=== PATIENT | male | born 1985 | race Caucasian/White ===

== ENCOUNTER 2020-06-14 18:58 | Emergency (ER) | payer OTHER ==
--- NOTE | 2020-06-14 20:02 | ER Document Report ---
ED Medical Screen (RME) - General Chief Complaint: High Blood Pressure Stated Complaint: DIZZY Time Seen by Provider: 06/14/20 19:53 - HPI Notes: 06/14/20 20:06 34-year-old male presents to the emergency room today with complaints of headaches, dizziness, reports moments where he is "blacking out" throughout the day, elevated blood pressure is 165/105 while taking amlodipine and losartan. Patient has been following pain management due to issues with his lumbar spine, his blood pressure was elevated when he was with pain management, they advised him to get on blood pressure medications which he did with his primary care pr ovider a year ago , patient say that he has tried several blood pressure medications without any reduction in his actual blood pressure. 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 reports his headache is 3 out of 5, not the worst headache of his life I have greeted and performed a rapid initial assessment of this patient. A comprehensive ED assessment and evaluation of the patient, analysis of test results and completion of the medical decision making process will be conducted by additional ED providers. PHYSICAL EXAMINATION: GENERAL: Well-appearing, well-nourished and in moderate distress due to lower back pain HEAD: Atraumatic, normocephalic. EYES: Pupils equal round extraocular movements intact, conjunctiva are normal. NECK: Normal range of motion CV: s1, s2 regular LUNGS: No respiratory distress The patient was evaluated during a global COVID-19 pandemic and that diagnosis was suspected/considered upon their initial presentation. Their evaluation, treatment and testing was consistent with current guidelines for patients who present with complaints or symptoms and may be related to COVID-19. 06/14/20 20:11 - Related Data Allergies/Adverse Reactions: No Known Allergies Allergy (Unverified 02/27/14 14:23) Past Medical History Pulmonary Medical History: Reports: Hx Asthma - Immunizations Hx Diphtheria, Pertussis, Tetanus Vaccination: - unknown
[2020-06-14] MEDS ORDERED: METHOCARBAMOL 500 MG TABLET PO ONE (20:03)
[2020-06-14] MEDS ORDERED: HYDROCODONE/ACETAMINOPHEN 7.5-325 MG TABLET PO ONE (20:03)
[2020-06-14 20:58] LABS: ABSOLUTE BASOPHILS # (AUTO) 0.1 10^3/uL (0.0-0.2); ABSOLUTE EOSINOPHILS # (AUTO) 0.2 10^3/uL (0.0-0.6); ABSOLUTE LYMPHOCYTES (AUTO) 1.9 10^3/uL (0.5-4.7); ABSOLUTE MONOCYTES (AUTO) 1.1 10^3/uL (0.1-1.4); ABSOLUTE NEUT (AUTO) 7.4 10^3/uL (1.7-8.2); BASOPHILS % (AUTO) 0.9 % (0-2); EOSINOPHILS % (AUTO) 2.2 % (0-6); HEMATOCRIT 44.1 % (37.9-51.0); HEMOGLOBIN 15.2 g/dL (13.5-17.0); LYMPHOCYTES % (AUTO) 17.5 % (13-45); MEAN CORPUSCULAR HEMOGLOBIN 31.1 pg (27.0-33.4); MEAN CORPUSCULAR HGB CONC 34.5 g/dL (32.0-36.0); MEAN CORPUSCULAR VOLUME 90 fl (80-97); MONOCYTES % (AUTO) 10.1 % (3-13); PLATELET COUNT 246 10^3/uL (150-450); RED BLOOD COUNT 4.89 10^6/uL (4.35-5.55); RED CELL DISTRIBUTION WIDTH 12.9 % (11.5-14.0); SEGMENTED NEUTROPHILS % (AUTO) 69.3 % (42-78); TOTAL CELLS COUNTED % (AUTO) 100 %; WHITE BLOOD COUNT 10.7 10^3/uL (4.0-10.5)
--- NOTE | 2020-06-14 20:59 | RADIOLOGY REPORT (SQ) ---
EXAM DESCRIPTION: CT HEAD WITHOUT IV CONTRAST COMPLETED DATE/TME: 06/14/2020 20:30 CLINICAL HISTORY: 34 years, Male, headache, bp 170s/90, sudden onset EXAM DESCRIPTION: CT HEAD WITHOUT CLINICAL HISTORY: headache, bp 170s/90, sudden onset COMPARISON: None Available TECHNIQUE: Contiguous axial CT images of the head were obtained. Coronal and sagittal reconstructions were created from the axial data. This exam was performed according to our departmental dose-optimization program, which includes automated exposure control, adjustment of the mA and/or kV according to patient size and/or use of iterative reconstruction technique. FINDINGS: There is moderate mucosal thickening of the paranasal sinuses. There is no evidence of acute mass, mass effect, midline shift or hemorrhage. The ventricles and extra-axial CSF spaces are unremarkable. The brain parenchyma appears normal for the patient's age. No acute abnormalities of the bones is seen. IMPRESSION: No acute intracranial abnormality.
--- NOTE | 2020-06-14 21:00 | RADIOLOGY REPORT (SQ) ---
EXAM DESCRIPTION: XR CHEST 1 VIEW COMPLETED DATE/TME: 06/14/2020 20:20 CLINICAL HISTORY: 34 years, Male, headache, bp 170s/90, sudden onset COMPARISON: Chest x-ray 02/27/2014. TECHNIQUE: PA view of the chest FINDINGS: Cardiomediastinal silhouette is not enlarged. No suspicious lung pleural bone abnormalities. IMPRESSION: Negative chest x-ray.
[2020-06-14 21:12] LABS: ALBUMIN 5.2 g/dL (3.5-5.0); ALKALINE PHOSPHATASE 49 U/L (38-126); ANION GAP 9 (5-19); ASPARTATE AMINO TRANSFERASE 40 U/L (17-59); BILIRUBIN,DIRECT 0.2 mg/dL (0.0-0.4); BILIRUBIN,TOTAL 1.2 mg/dL (0.2-1.3); BLOOD UREA NITROGEN 10 mg/dL (7-20); CALCIUM 10.3 mg/dL (8.4-10.2); CARBON DIOXIDE 28 mmol/L (22-30); CHLORIDE 97 mmol/L (98-107); GLUCOSE 102 mg/dL (75-110); POTASSIUM 4.4 mmol/L (3.6-5.0); TOTAL PROTEIN 8.5 g/dL (6.3-8.2)
--- NOTE | 2020-06-14 22:20 | ER Document Report ---
ED Dizziness/Weakness - General Chief Complaint: Near Syncope Stated Complaint: DIZZY Time Seen by Provider: 06/14/20 19:53 Primary Care Provider: CECI MCCORMICK MD [Primary Care Provider] - Follow up as needed Mode of Arrival: Ambulatory Information source: Patient Notes: 06/14/20 19:54 - ED Nursing Note by WANDA REZA [facility] Num: [id number] : 1985 Patient Age: 34 Addendum entered by WANDA REZA RN 06/14/20 19:57: pt denies chest pain/sob Original Note: pt presents to ed via pov w/ c/o of dizziness, lightheadedness, "spasms," and near syncope at home and in ED since yesterday. pt denies changes to bp medications or missed dosages. pt aox4, breathes e/u. Initialized on 06/14/20 19:54 - END OF NOTE ED Medical Screen (Renan Calhoun) - General Chief Complaint: High Blood Pressure Stated Complaint: DIZZY Time Seen by Provider: 06/14/20 19:53 - HPI Notes: 06/14/20 20:06 34-year-old male presents to the emergency room today with complaints of headaches, dizziness, reports moments where he is "blacking out" throughout the day, elevated blood pressure is 165/105 while taking amlodipine and losartan. Patient has been following pain management due to issues with his lumbar spine, his blood pressure was elevated when he was with pain management, they advised him to get on blood pressure medications which he did with his primary care provider a year ago , patient say that he has tried several blood pressure medications without any reduction in his actual blood pressure. 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 reports his headache is 3 out of 5, not the worst headache of his life I have greeted and performed a rapid initial assessment of this patient. A comprehensive ED assessment and evaluation of the patient, analysis of test results and completion of the medical decision making process will be conducted by additional ED providers. PHYSICAL EXAMINATION: GENERAL: Well-appearing, well-nourished and in moderate distress due to lower back pain HEAD: Atraumatic, normocephalic. EYES: Pupils equal round extraocular movements intact, conjunctiva are normal. NECK: Normal range of motion CV: s1, s2 regular LUNGS: No respiratory distress MY NOTES 34-year-old male arrives with chief complaint of headache dizziness and syncopal episodes throughout the day. His blood pressure is 165/105 despite taking Norvasc and losartan. Patient is a mesomorphic heavily tattooed male who snores at nighttime with a thick neck according to his . Also patient's is from [place] and is a good cook and he put on at least 80 pounds since he has been . Patient advises his blood pressures also been going up and his father at age 55 from a CABG. His father has hypertension as well. Patient reports he recently was placed on Afrin nasal spray because he had a premolar pulled and has a root remaining in the dry socket. His dentist placed him on Afrin and he has been using that since mid May. He feels his sinuses are much more clear now after using the Afrin. I warned him about the adrenergic effects of hypertension and tachycardia on this. He has dilated pupils at this time. 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 - Related Data Allergies/Adverse Reactions: No Known Allergies Allergy (Unverified 02/27/14 14:23) Past Medical History - Social History Smoking Status: Former Smoker Frequency of alcohol use: Occasional Family History: Other Pulmonary Medical History: Reports: Hx Asthma - Immunizations Hx Diphtheria, Pertussis, Tetanus Vaccination: - unknown Physical Exam - Vital signs Vitals: Temp Pulse Resp BP Pulse Ox 98.0 F 114 H 20 179/122 H 100 06/14/20 19:11 06/14/20 19:11 06/14/20 19:11 06/14/20 19:11 06/14/20 19:11 Interpretation: Hypertensive, Tachycardic - General General appearance: Appears well, Alert - HEENT Head: Normocephalic, Atraumatic Eyes: Normal Extraocular movements intact: Yes Pupils: Dilated Sinus: Normal Nasal: Normal Mouth/Lips: Normal Mucous membranes: Normal Pharynx: Normal Neck: Normal - Respiratory Respiratory status: No respiratory distress Chest status: Nontender Breath sounds: Normal Chest palpation: Normal - Cardiovascular Rhythm: Tachycardia Heart sounds: Normal auscultation Murmur: No - Abdominal Inspection: Normal Distension: No distension Bowel sounds: Normal Tenderness: Nontender Organomegaly: No organomegaly - Rectal Prostate: Other - deferred - Genitourinary Scrotum: Other - deferred - Back Back: Normal, Nontender - Extremities General upper extremity: Normal inspection, Nontender, Normal color, Normal ROM, Normal temperature General lower extremity: Normal inspection, Nontender, Normal color, Normal ROM, Normal temperature, Normal weight bearing. No: Reyna's sign - Neurological Neuro grossly intact: Yes Cognition: Normal Orientation: AAOx4 [place] Coma Scale Eye Opening: Spontaneous [place] Coma Scale Verbal: Oriented [place] Coma Scale Motor: Obeys Commands Rachelle Coma Scale Total: 15 Speech: Normal Motor strength normal: LUE, RUE, LLE, RLE Sensory: Normal - Psychological Associated symptoms: Normal affect, Normal mood - Skin Skin Temperature: Warm Skin Moisture: Dry Skin Color: Normal Course - Vital Signs Vital signs: Temp Pulse Resp BP Pulse Ox 98.0 F 72 12 149/85 H 98 06/14/20 19:11 06/15/20 00:20 06/14/20 22:50 06/15/20 00:20 06/14/20 22:50 - Laboratory Results Result Diagrams: 06/14/20 20:38 06/14/20 20:38 Laboratory Results Interpreted: 06/14/20 06/14/20 06/14/20 20:38 20:38 20:38 WBC 10.7 H Sodium 134.4 L Chloride 97 L Calcium 10.3 H Total Protein 8.5 H Albumin 5.2 H TSH 5.73 H Urine Ketones 06/14/20 23:36 WBC Sodium Chloride Calcium Total Protein Albumin TSH Urine Ketones TRACE H Critical Laboratory Results Reviewed: Yes Attending or Supervising Physician who Reviewed Labs: STU GAY JR - Radiology Results Critical Radiology Results Reviewed: Yes Attending or Supervising Physician who Reviewed Radiology: STU GAY JR EKG Interpretation by Me EKG shows normal: Sinus rhythm Rate: Normal Rhythm: NSR - 94 bpm heart rate with no ST elevation no ST depression no T wave elevation no T wave depression axis within normal limits and this was read by me and I agree with the EKG findings as well. Critical Care Note - Critical Care Note Comments: Blood pressure 149/79 by 00 30 and I discussed the findings with the patient as well as his back x-rays. Discharge - Discharge Clinical Impression: Tachycardia Sinusitis Qualifiers: Sinusitis location: unspecified location Chronicity: acute Recurrence: not specified as recurrent Qualified Code(s): J01.90 - Acute sinusitis, unspecified Hypertension Qualifiers: Hypertension type: unspecified Qualified Code(s): I10 - Essential (primary) hypertension Low back pain Qualifiers: Chronicity: chronic Back pain laterality: unspecified Sciatica presence: without sciatica Qualified Code(s): M54.5 - Low back pain Condition: Stable Disposition: HOME, SELF-CARE Additional Instructions: Follow-up with personal doctor this week return to ER as needed may follow-up with Dr. Marte fire manager as well. Also follow-up with orthopedics Dr. Fernández for your low back or personal doctor for this as well. Avoid lifting bending or twisting. Also upon taking your blood pressure medicines arise slow ly from a laying position to a sitting position and wait 2 minutes also arising from a sitting to standing position hold onto something for least 2 minutes for least 1 week. Your body has to compensate for a lower blood pressure. Avoid using Afrin nasal spray and may apply Bactroban to nose. Prescriptions: Mupirocin [Bactroban 2% Ointment 22 gm] 1 applic NASL HSP PRN #1 tube PRN Reason: Labetalol HCl 100 mg PO HSP PRN #30 tablet PRN Reason: Lisinopril/Hydrochlorothiazide [Lisinopril-Hctz 20-25 mg Tab] 1 each PO DAILY #30 tablet Forms: Return to Work Referrals: CECI MCCORMICK MD [Primary Care Provider] - Follow up as needed CLARE MARTE MD [ACTIVE STAFF] - Follow up as needed ANEESH FERNÁNDEZ DO [ACTIVE STAFF] - Follow up as needed
[2020-06-14] MEDS ORDERED: ENALAPRILAT DIHYDRATE INJ/PF 2.5 MG/2 ML SDV IV ONE (22:27)
[2020-06-14] MEDS ORDERED: LABETALOL HCL INJ 20 MG/4 ML DISP.SYRIN IV ONE (22:27)
[2020-06-14] MEDS ORDERED: PROMETHAZINE HCL INJ 25 MG/1 ML VIAL IV ONE (22:28)
[2020-06-14] MEDS ORDERED: HYDROMORPHONE HCL INJ/PF 2 MG/ML AMPULE IV ONE (22:28)
[2020-06-14 23:52] LABS: APPEARANCE,URINE CLEAR; BILIRUBIN,URINE NEGATIVE (NEGATIVE); COLOR,URINE YELLOW; GLUCOSE, URINE NEGATIVE (NEGATIVE); KETONES,URINE TRACE mg/dL (NEGATIVE); LEUKOCYTE ESTERASE,URINE NEGATIVE (NEGATIVE); NITRITE,URINE NEGATIVE (NEGATIVE); PROTEIN,URINE NEGATIVE (NEGATIVE); URINE SPECIFIC GRAVITY 1.009; UROBILINOGEN,URINE NEGATIVE mg/dL (<2.0)
[2020-06-15 00:04] LABS: URINE AMPHETAMINES SCREEN NEGATIVE; URINE BARBITURATES SCREEN NEGATIVE; URINE BENZODIAZEPINES SCREEN NEGATIVE; URINE COCAINE SCREEN NEGATIVE; URINE MARIJUANA (THC) SCREEN NEGATIVE; URINE METHADONE SCREEN NEGATIVE; URINE PHENCYCLIDINE SCREEN NEGATIVE
--- NOTE | 2020-06-15 00:29 | RADIOLOGY REPORT (SQ) ---
EXAM DESCRIPTION: XR LUMBAR SPINE 2-3 VIEWS COMPLETED DATE/TME: 06/14/2020 23:40 CLINICAL HISTORY: 34 years, Male, pain ls COMPARISON: None. NUMBER OF VIEWS: 3 TECHNIQUE: 3 views of the lumbar spine were obtained. LIMITATIONS: None. FINDINGS: There is no evidence of fracture or subluxation. No significant disc space narrowing is seen. IMPRESSION: No significant finding copyright 2011 [employer]- All Rights Reserved
--- NOTE | 2020-06-15 00:32 | RADIOLOGY REPORT (SQ) ---
EXAM DESCRIPTION: SACROILIAC JOINTS 3 OR MORE [employer]: XR SACROILIAC JOINT 3 OR MORE VIEWS Views: 3, AP and bilateral obliques CLINICAL HISTORY: 34 years Male; low back pain; COMPARISON: None. FINDINGS: Sacral ala are symmetric. No sacroiliac diastasis. No acute fracture. Sacrococcygeal alignment is anatomic. No sclerosis along the SI joints. No suspicious lytic or blastic lesions. IMPRESSION: 1. Normal sacroiliac radiographs.
--- NOTE | 2020-06-15 00:47 | EKG REPORT ---
SEVERITY:- NORMAL ECG - SINUS RHYTHM : Confirmed by: Vinny Hernandez 15-Jun-2020 00:45:52
[2020-06-15 00:54] VITALS: BP 154/82
== END 2020-06-15 00:54 | disposition home or self-care (01) ==
LOC: ER 18:58
DX: I10 Essential (primary) hypertension (principal); R55 Syncope and collapse; J01.90 Acute sinusitis, unspecified; M54.5 Low back pain; R42 Dizziness and giddiness; R00.0 Tachycardia, unspecified; R25.2 Cramp and spasm; R51.9 Headache, unspecified; R06.83 Snoring; J45.909 Unspecified asthma, uncomplicated; K08.409 Partial loss of teeth, unspecified cause, unspecified class; Z87.891 Personal history of nicotine dependence; Z79.899 Other long term (current) drug therapy; Z82.49 Family history of ischemic heart disease and other diseases of the circulatory system
CPT/HCPCS: 93005; 99285; 96374; 96375; 36415; 84439; 83735; 84443; 85025; 80053; 81001; 84484; 80307; 71045; 72100; 72202; 70450; 93010; J3490 ×2; J1170; J2550